=== PATIENT | female | born 1935 | race Caucasian/White ===

== ENCOUNTER → 2016-08-05 | Outpatient (CLI) | payer MEDICARE, MEDICAID | END | disposition home or self-care (01) | LOC: MW.CHIM 09:37 | PROVIDERS: ATTEND Internal Medicine | DX: I10 Essential (primary) hypertension (principal); D64.9 Anemia, unspecified; N18.9 Chronic kidney disease, unspecified; I12.9 Hypertensive chronic kidney disease with stage 1 through stage 4 chronic kidney disease, or unspecified chronic kidney disease; N32.81 Overactive bladder; D50.9 Iron deficiency anemia, unspecified | CPT/HCPCS: 36415; 80053; 83540; 85025; 99214 ==

== ENCOUNTER → 2016-10-23 | Outpatient (CLI) | payer MEDICARE, MEDICAID | LOC: MW.CHORTHO 08:00 | PROVIDERS: ATTEND Physician Assistant | DX: M17.12 Unilateral primary osteoarthritis, left knee (principal); M17.11 Unilateral primary osteoarthritis, right knee; M25.561 Pain in right knee; M25.562 Pain in left knee | CPT/HCPCS: 20610-50; G0463; J1040 ==

== ENCOUNTER → 2016-11-03 | Outpatient (CLI) | payer MEDICARE, MEDICAID ==
--- NOTE | 2016-11-03 15:10 | CR ---
EXAMINATION: Facial bones HISTORY: Injury COMPARISON: None TECHNIQUE: 3 views FINDINGS: There is no acute osseous abnormality, dislocation, or fracture identified. The frontal an d maxillary sinuses appear intact. Bone mineralization appears normal. The orbits are symmetric. IMPRESSION: No acute osseous abnormality identified.
== END ==
LOC: MW.CHIM 09:41 → MW.CHORTHO 09:41
PROVIDERS: ATTEND Internal Medicine
DX: S09.93XA Unspecified injury of face, initial encounter (principal); I10 Essential (primary) hypertension; D64.9 Anemia, unspecified; N39.41 Urge incontinence; S00.83XA Contusion of other part of head, initial encounter; N18.9 Chronic kidney disease, unspecified; D50.9 Iron deficiency anemia, unspecified; I12.9 Hypertensive chronic kidney disease with stage 1 through stage 4 chronic kidney disease, or unspecified chronic kidney disease
CPT/HCPCS: 36415; 70140; 70140-26; 80053; 83540; 85025; 99214

== ENCOUNTER → 2016-11-05 | Outpatient (CLI) | payer MEDICARE, MEDICAID | LOC: MW.CHIM 09:07 | PROVIDERS: ATTEND Internal Medicine | DX: N39.41 Urge incontinence (principal) | CPT/HCPCS: 81001 ==

== ENCOUNTER 2018-11-04 12:49 | Emergency (ER) | payer MEDICARE, MEDICAID ==
--- NOTE | 2018-11-04 13:03 | EDM.PDOC ---
ED HPI GENERAL MEDICAL PROBLEM - General Chief Complaint: Lower Extremity Injury/Pain Stated Complaint: LEG PAIN Time Seen by Provider: 11/04/18 12:57 - History of Present Illness INITIAL COMMENTS - FREE TEXT/NARRATIVE: HISTORY AND PHYSICAL: History of present illness: Patient is an 83-year-old female with history of hypertension and degenerative joint disease with more significant arthritis in her knees bilaterally presents with a concern of right leg pain 2 days she describes this as in her right lateral mid leg she denies history of DVT she denies trauma she states she has chronic intermittent edema for inferior extremity. She denies chest pain shortness of breath numbness weakness or other complaints Review of systems: As per history of present illness and below otherwise all systems reviewed and negative. Past medical history: As per history of present illness and as reviewed below otherwise noncontributory. Surgical history: As per history of present illness and as reviewed below otherwise noncontributory. Social history: No reported history of drug or alcohol abuse. Family history: As per history of present illness and as reviewed below otherwise noncontributory. Physical exam: HEENT: Atraumatic, normocephalic, pupils reactive, negative for conjunctival pallor or scleral icterus, mucous membranes moist, throat clear, neck supple, nontender, trachea midline. Lungs: Clear to auscultation, breath sounds equal bilaterally, chest nontender. Heart: S1S2, regular, negative for clicks, rubs, or JVD. Abdomen: Soft, nondistended, nontender. Negative for masses or hepatosplenomegaly. Negative for costovertebral tenderness. Pelvis: Stable nontender. Genitourinary: Deferred. Rectal: Deferred. Extremities: 2+ edema inferiorly noted some mild tenderness laterally over right mid leg is no localized tenderness crepitation or gross deformity she's got degenerative changes noted in her knees bilaterally neurovascular exam is unremarkable. Neuro: Awake, alert, oriented. Cranial nerves II through XII unremarkable. Cerebellum unremarkable. Motor and sensory unremarkable throughout. Exam nonfocal. Diagnostics: CBC CMP PT/INR x-ray bilateral knee x-ray right tib-fib venous Doppler right lower extremity Therapeutics: None Impression: #1 right leg pain #2 degenerative joint disease Definitive disposition and diagnosis as appropriate pending reevaluation and review of above. - Related Data Allergies Allergy/AdvReac Type Severity Reaction Status Date / Time Penicillins Allergy Cannot Verified 11/04/18 13:11 Remember Home Meds: Home Meds Alendronate Sodium [Alendronate] 1 tab PO WEEKLY 07/16/15 [History] Ferrous Sulfate 325 mg PO ASDIRECTED 11/04/18 [History] Lisinopril 10 mg PO DAILY 11/04/18 [History] Tolterodine [Detrol LA 24 Hr] 2 mg PO DAILY 11/04/18 [History] amLODIPine [Norvasc] 2.5 mg PO DAILY 11/04/18 [History] Past Medical History HEENT History: Reports: Cataract Cardiovascular History: Reports: Hypertension Respiratory History: Reports: None Genitourinary History: Reports: None Musculoskeletal History: Reports: Arthritis, Other (See Below) Other Musculoskeletal History: hx of osteopenia, states has arthritis of knees Oncologic (Cancer) History: Reports: Uterine Other Oncologic History: states hysterectomy for uterine cancer - Past Surgical History HEENT Surgical History: Reports: Cataract Surgery Review of Systems - Review of Systems Review Of Systems: ROS reveals no pertinent complaints other than HPI. ED EXAM, GENERAL - Physical Exam Exam: See Below (See dictation) Course - Vital Signs Last Recorded V/S: Last Vital Signs Temp 36.1 C 11/04/18 13:08 Pulse 98 11/04/18 13:08 Resp 18 11/04/18 13:08 BP 139/65 11/04/18 13:08 Pulse Ox 99 11/04/18 13:08 - Orders/Labs/Meds Orders: Active Orders 24 hr Category Date Time Status Knee 3V Lt [CR] Stat Exams 11/04/18 13:01 Ordered Knee 3V Rt [CR] Stat Exams 11/04/18 13:01 Ordered Tibia Fibula Rt [CR] Stat Exams 11/04/18 13:01 Ordered Labs: Laboratory Tests 11/04/18 11/04/18 11/04/18 Range/Units 13:08 13:08 13:08 WBC 9.10 (4.0-11.0) K/uL RBC 3.01 L (4.30-5.90) M/uL Hgb 9.0 L (12.0-16.0) g/dL Hct 27.4 L (36.0-46.0) % MCV 91.0 (80.0-98.0) fL MCH 29.9 (27.0-32.0) pg MCHC 32.8 (31.0-37.0) g/dL RDW Std Deviation 46.3 (28.0-62.0) fl RDW Coeff of Sherin 14 (11.0-15.0) % Plt Count 256 (150-400) K/uL MPV 9.40 (7.40-12.00) fL Neut % (Auto) 76.9 (48.0-80.0) % Lymph % (Auto) 14.6 L (16.0-40.0) % Perkins % (Auto) 7.4 (0.0-15.0) % Eos % (Auto) 0.9 (0.0-7.0) % Baso % (Auto) 0.2 (0.0-1.5) % Neut # (Auto) 7.0 H (1.4-5.7) K/uL Lymph # (Auto) 1.3 (0.6-2.4) K/uL Perkins # (Auto) 0.7 (0.0-0.8) K/uL Eos # (Auto) 0.1 (0.0-0.7) K/uL Baso # (Auto) 0.0 (0.0-0.1) K/uL Nucleated RBC % 0.0 /100WBC Nucleated RBCs # 0 K/uL INR 0.96 Sodium 137 (136-145) mmol/L Potassium 5.4 H (3.5-5.1) mmol/L Chloride 107 (98-107) mmol/L Carbon Dioxide 19.1 L (21.0-32.0) mmol/L BUN 44 H (7.0-18.0) mg/dL Creatinine 2.5 H (0.6-1.0) mg/dL Est Cr Clr Drug Dosing TNP Estimated GFR (MDRD) 18.4 ml/min Glucose 168 H (74-106) mg/dL Calcium 8.7 (8.5-10.1) mg/dL Total Bilirubin 0.3 (0.2-1.0) mg/dL AST 20 (15-37) IU/L ALT 21 (14-63) IU/L Alkaline Phosphatase 95 (46-116) U/L Total Protein 6.5 (6.4-8.2) g/dL Albumin 3.3 L (3.4-5.0) g/dL Globulin 3.2 (2.6-4.0) g/dL Albumin/Globulin Ratio 1.0 (0.9-1.6) Departure - Departure Time of Disposition: 14:06 Disposition: Home, Self-Care 01 Condition: Good Clinical Impression: Degenerative joint disease, Leg pain, Renal insufficiency - Discharge Information Referrals: PCP,Unknown [Primary Care Provider] - Forms: ED Department Discharge - My Orders Last 24 Hours: My Active Orders 11/04/18 13:01 Knee 3V Lt [CR] Stat Knee 3V Rt [CR] Stat Tibia Fibula Rt [CR] Stat - Assessment/Plan Last 24 Hours: My Active Orders 11/04/18 13:01 Knee 3V Lt [CR] Stat Knee 3V Rt [CR] Stat Tibia Fibula Rt [CR] Stat
[2018-11-04 13:41] LABS: CHLORIDE,CL 107 mmol/L (98-107); SODIUM,NA 137 mmol/L (136-145)
--- NOTE | 2018-11-04 14:00 | US ---
ULTRASOUND EXAMINATION OF the right lower extremity WITH DOPPLER HISTORY: Pain FINDINGS: Examination of the right leg was performed from the groin to the calf region. All visualized segments including common femoral, proximal greater saphenous, superficial femoral, popliteal and calf veins appear patent with good compressibility and augmentation. There is no evidence of deep vein thrombosis. IMPRESSION: No evidence of a DVT.
--- NOTE | 2018-11-04 14:45 | CR ---
EXAMINATION: Left knee HISTORY: Pain COMPARISON: 04/30/2017 TECHNIQUE: 3 views FINDINGS: There is no acute osseous abnormality, dislocation, or fracture. There is advanced joint space narrowing within the lateral compartment and moderately within the medial compartment. Prominent osteophyte formation noted within all 3 compartments. There is no joint effusion or soft tissue swelling. Bone mineralization is grossly normal. IMPRESSION: Advanced osteoarthritic changes noted within the left knee.
--- NOTE | 2018-11-04 14:47 | CR ---
EXAMINATION: Right knee and right tibia and fibula HISTORY: Pain COMPARISON: 04/30/2017 TECHNIQUE: 3 views of the right knee and 2 views of the right tibia and fibula FINDINGS: Advanced osteoarthritic changes and joint space narrowing noted within the medial compartment and less so within the lateral and patellofemoral compartments. Extensive osteophyte formation is noted. There is no fracture or acute osseous abnormality. Bone mineralization is normal to mildly osteopenic. No soft tissue swelling or joint effusion. The tibia and fibula also appear intact however mildly osteopenic. There is moderate subcutaneous soft tissue swelling within the lower leg IMPRESSION: 1. Soft tissue swelling within the lower leg without an acute osseous abnormality. 2. Advanced osteoarthritic changes within the right knee.
[2018-11-04 15:33] VITALS: BP 110/55
== END 2018-11-04 15:32 | disposition home or self-care (01) ==
LOC: MW.ED 12:49
DX: M17.11 Unilateral primary osteoarthritis, right knee (principal); M17.12 Unilateral primary osteoarthritis, left knee; I10 Essential (primary) hypertension; Z88.0 Allergy status to penicillin; Z79.899 Other long term (current) drug therapy
CPT/HCPCS: 36415; 73562-26-LT; 73562-26-RT; 73562-LT; 73562-RT; 73590-26-RT; 73590-RT; 80053; 84132; 85025; 85610; 93971-26-RT; 93971-RT; 99281; 99283-25

== ENCOUNTER 2021-12-16 16:29 | Emergency (ER) | payer MEDICARE, MEDICAID ==
[2021-12-16] MEDS ORDERED: Diphtheria,Pertussis(Acell),Tetanus Vaccine 0.5 ML Syringe IM ONE (16:49)
[2021-12-16 19:14] VITALS: BP 140/59; PULSE 85
== END 2021-12-16 19:15 | disposition home or self-care (01) ==
LOC: MW.ED 16:29
DX: S01.01XA Laceration without foreign body of scalp, initial encounter (principal); I10 Essential (primary) hypertension; Z23 Encounter for immunization; Z79.899 Other long term (current) drug therapy; Z88.0 Allergy status to penicillin; W18.09XA Striking against other object with subsequent fall, initial encounter; Y93.89 Activity, other specified
CPT/HCPCS: 12001; 70450; 70450-26; 72125; 72125-26; 90471; 90715; 99284-25